=== PATIENT | male | born 1955 | race Caucasian/White ===

== ENCOUNTER 2020-08-06 22:16 | Inpatient (IN) | payer OTHER ==
[~2020-08-06] VITALS: Ht 188 cm; Wt 105.7 kg
[~2020-08-06 22:16] MED LIST: ALL DAY ALLERGY10 M2 PO; ASPIR-LOW81 MG PO; ASPIRIN 325MG325 MG NG; ASPIRIN81 MG PO; ATORVASTATIN CA20 MG PO; BACLOFEN10 MG PO; BACTRIM D.S. TAB1 EA PO; BUMETANIDE1 MG PO; BUMEX 1MG TABLET1 MG PO; CATAPRES 0.1MG0.1 MG PO; CEFUROXIME500 MG PO; CHRONULAC20 GM/30 M PO; CLARITIN10 M2 PO; CLOPIDOGREL75 MG PO; COREG 3.125M3.125 MG PO; DALVANCE500 MG IV; DIURIL PO; DOXYCYCLINE HY100 M2 PO; FERROUS SULFAT325 M2 PO; FOLIC ACID 1 MG1 MG PO; FUROSEMIDE40 MG PO; HUMALOG 10100 UNITS/ SC; HUMALOG100 UNIT/1 SQ; HYDRALAZINE HCL25 MG PO; HYDROCODON-ACE1 EAC6 PO; IMDUR ER TAB 3030 MG PO; IRON325 M1 PO; JUVEN PACKET1 EACH PO; KAYEXALATE POWDE1 GM PO; KEFLEX500 MG PO; LANTUS INS100 UTS/M1 SC; LANTUS SOL100 UNIT/1 SQ; LANTUS100 UNIT/1 SQ; LEVAQUIN750 MG PO; LEVEMIR100 UNIT/1 SQ; LIPITOR TAB 2020 MG PO; LISINOPRIL5 MG PO; LOPRESSOR 25 MG25 MG PO; LORTAB 7.5-3251 EACH PO; METOPROLOL SUCC50 MG PO; MIRALAX17 GM PO; NEURONTIN 300300 MG PO; NITROSTAT0.4 MG SL; NORCO 7.5-3251 EACH PO; NORVASC 5 MG TAB5 MG PO; NOVOLOG 10100 UNITS2 SQ; PERCOCET 10-321 EACH PO; PLAVIX75 MG PO; REMERON15 MG PO; SENNA-DOCUSATE1 EACH PO; SINGULAIR10 MG PO; TOPROL XL25 MG PO; VENTOLIN HFA 66.7 GM INH; VITAMIN B-121000 MC3 PO; VITAMIN B-121000 MCG PO; VITAMIN B12-FO1 EACH PO; VITAMIN C 500500 MG PO; VITAMIN E400 UNI5 PO; ZINC SULFATE220 M1 PO; ZOLOFT100 MG PO; ZOLOFT50 MG PO; ZYRTEC10 MG PO
[2020-08-06 23:28] LABS: HEMOGLOBIN 11.5 gm/dl (14.0-17.5); RED BLOOD COUNT 3.89 M/UL (4.20-5.50); WHITE BLOOD COUNT 4.9 K/UL (4.5-11.0)
[2020-08-07] MEDS ORDERED: LANTUS100 UNIT/1 SQ (04:08)
[2020-08-07] MEDS ORDERED: LEVOTHYROXINE25 MCG PO (04:11)
--- NOTE | 2020-08-07 11:58 | NUR ---
PATIENT STATES HE OCCASIONALLY GETS SHORT OF BREATH. DR. BOLIVAR CALLED AND NOTIFIED. HE SAID HE WOULD COME AND TALK TO PATIENT LATER. NURSE SUGGESTED CONSULT WITH RESPIRATORY. DR. BOLIVAR SUGGESTED WE JUST HOLD OFF FOR NOW UNTIL AFTER HE TALKS WITH PATIENT.
[2020-08-08 02:28] LABS: HEMOGLOBIN 10.5 gm/dl (14.0-17.5); RED BLOOD COUNT 3.59 M/UL (4.20-5.50)
[2020-08-08 02:32] LABS: WHITE BLOOD COUNT 3.2 K/UL (4.5-11.0)
[2020-08-09 05:51] LABS: HEMOGLOBIN 10.7 gm/dl (14.0-17.5); RED BLOOD COUNT 3.68 M/UL (4.20-5.50)
[2020-08-09 05:52] LABS: WHITE BLOOD COUNT 4.4 K/UL (4.5-11.0)
--- NOTE | 2020-08-10 15:34 | NUR ---
1022 Summoned to patient's room per patient's sister. Patient lying across bed. No pulse nor respirations noted. CPR started & [facility] called. Dr Edwards, Dr Desai, Dr De La Cruz & Dr Talbert present. Patient placed on monitor. ACLS Meds & Antiarrythmics were delivered. Patient would have pulse then go back into V-tach. Patient was intubated per Dr Talbert. 1057 Daughter, Selena, here requested CPR be stopped at this time. Time of 1058. 1130 - [facility] called to inform of , ruled out for donation. Spoke with Jamir Harris, #[phone]. 1215 Family members at bedside. Daughter, Selena, informed myself that they would like [facility] to be called to collect the body. [facility] called with request. 1245 [facility] here to collect body.
== END 2020-08-10 10:58 | disposition expired | DRG 291 ==
LOC: ER1 22:16 → CDU 08-07 02:37 → MED SURG 4 08-07 02:37 → CDU 08-07 04:15 → MED SURG 4 08-07 05:02
PROVIDERS: Family Medicine; Internal Medicine; ADMIT Internal Medicine
PROC: 5A2204Z Restoration of Cardiac Rhythm, Single (ICD-10-PCS; principal; 2020-08-10)
PROC: 5A12012 Performance of Cardiac Output, Single, Manual (ICD-10-PCS; 2020-08-10)
PROC: 0BH17EZ Insertion of Endotracheal Airway into Trachea, Via Natural or Artificial Opening (ICD-10-PCS; 2020-08-10)
DX: I13.0 Hypertensive heart and chronic kidney disease with heart failure and stage 1 through stage 4 chronic kidney disease, or unspecified chronic kidney disease (principal); I50.43 Acute on chronic combined systolic (congestive) and diastolic (congestive) heart failure; J96.21 Acute and chronic respiratory failure with hypoxia; I47.2 Ventricular tachycardia; C82.90 Follicular lymphoma, unspecified, unspecified site; N17.9 Acute kidney failure, unspecified; I49.01 Ventricular fibrillation; I46.2 Cardiac arrest due to underlying cardiac condition; I25.5 Ischemic cardiomyopathy; E11.42 Type 2 diabetes mellitus with diabetic polyneuropathy; R53.1 Weakness; I25.10 Atherosclerotic heart disease of native coronary artery without angina pectoris; I73.9 Peripheral vascular disease, unspecified; E11.22 Type 2 diabetes mellitus with diabetic chronic kidney disease; N18.30 Chronic kidney disease, stage 3 unspecified; E78.5 Hyperlipidemia, unspecified; G62.9 Polyneuropathy, unspecified; I27.20 Pulmonary hypertension, unspecified; Z20.822 Contact with and (suspected) exposure to COVID-19; I87.8 Other specified disorders of veins; D47.2 Monoclonal gammopathy; F41.9 Anxiety disorder, unspecified; Z95.1 Presence of aortocoronary bypass graft; Z89.512 Acquired absence of left leg below knee; Z90.49 Acquired absence of other specified parts of digestive tract; Z95.810 Presence of automatic (implantable) cardiac defibrillator; Z79.4 Long term (current) use of insulin; I25.2 Old myocardial infarction
CPT/HCPCS: 36415; 71045; 74230; 80048; 80053; 82550; 82553; 82962; 83874; 83880; 84484; 85025; 92610; 92611-GN; 93005; 93971; 94640; 94664; 94760; 96374; 99285; G0378; J0171; J0282; J0330; J1650; J2001; J2405; J3475; U0002